=== PATIENT | male | born 1990 | race Caucasian/White ===

== ENCOUNTER 2022-03-02 20:12 | Emergency (ER) | payer MEDICAID, SELFPAY ==
[2022-03-02 20:35] VITALS: BP 119/74; BP 126/84; PULSE 54; PULSE 60; RESP 20; TEMP 36.7; O2SAT 100; O2SAT 97; BMI 19.6
--- NOTE | 2022-03-02 20:45 | PC.NURSE ---
Pt. is under arrest, [place] [employer] at bedside. Pt. is calm and cooperative, AOx4
--- NOTE | 2022-03-02 21:33 | ED.OVERDOSE ---
HPI - Overdose General Chief Complaint: Overdose Stated Complaint: Narc Ingestion Time Seen by Provider: 03/02/22 21:33 History of Present Illness HPI Narrative: 31-year-old male presented today after being in police custody Coke a bag of heroin and a bag of cocaine. Incident happened approximately 2 hours prior patient took it for recreational reasons. Patient has no complaint at this time. Review of Systems Review of Systems: No fever no chills no chest pain or shortness of breath no systemic complaints Yes all other systems are reviewed and are negative [facility] Past Medical History Attestation statement: The following information was validated with the patient. Social History Social History Advance Directives: No Advance Directives Information Provided: No Physical Exam Vital Signs: Vital Signs: Last Vital Signs Temp 98.0 F 03/02/22 20:35 Pulse 54 03/02/22 20:35 Resp 20 03/02/22 20:35 BP 119/74 03/02/22 20:35 Pulse Ox 100 03/02/22 20:35 O2 Del Method 03/02/22 20:35 BMI result Body Mass Index 19.6 Appearance: Alert. Oriented X3. No acute distress. Eyes: Pupils equal, round and reactive to light. ENT: Pharynx normal. Neck: Normal inspection. Neck supple. No lymph nodes noted. No crepitus CVS: Normal heart rate and rhythm. Pulses normal. Normal S1 and S2 Respiratory: No respiratory distress. Breath sounds normal. No Wheezing. No rales Abdomen: Soft and nontender. No rigidity. No distention. good BS x4 Skin: Skin warm and dry. Normal skin color. Normal skin turgor. Extremities: No lower extremity edema. Neurovascular intact to all extremities. No Lacerations. No Rash Neuro: Oriented X 3. No motor deficit. No sensory deficit. Moving all extermities. No slurred speech MDM - Overdose MDM Narrative Medical decision making narrative: Well-appearing no acute distress. Did not receive Narcan monitor in the emergency department for an hour will discharge patient home. In stable condition. Discharge Plan Discharge Clinical Impression: Drug overdose, Poisoning by opiate or related narcotic, Cocaine intoxication Patient Disposition: Home, Self-Care Instructions: Adult Overdose (ED), Cocaine Abuse (ED), Narcotic Use Disorder (ED) Referrals: [facility] [Provider Group]
[2022-03-02 22:03] VITALS: BP 106/71; PULSE 59; O2SAT 100
== END 2022-03-02 22:21 | disposition home or self-care (01) ==
PROVIDERS: Emergency Provider Emergency Medicine Emergency Medical Services
DX: T40.1X1A Poisoning by heroin, accidental (unintentional), initial encounter (principal); Y92.9 Unspecified place or not applicable; F14.129 Cocaine abuse with intoxication, unspecified; Z71.51 Drug abuse counseling and surveillance of drug abuser; Z79.899 Other long term (current) drug therapy
CPT/HCPCS: 99282; 99284

== ENCOUNTER 2024-06-02 01:43 | Inpatient (IN) | payer MEDICAID, SELFPAY ==
[2024-06-02] VITALS (10 sets, daily range): BP systolic 100–130; BP diastolic 55–80; PULSE 47–112; RESP 12–20; TEMP 36.4–37.5; O2SAT 96–98; BMI 19.1; BMI 19.7
--- NOTE | 2024-06-02 | ECG_ITS ---
Test Reason : OD Blood Pressure : / mmHG Vent. Rate : 056 BPM Atrial Rate : 056 BPM P-R Int : 156 ms QRS Dur : 092 ms QT Int : 604 ms P-R-T Axes : 008 075 084 degrees QTc Int : 582 ms Sinus bradycardia Nonspecific ST and T wave abnormality Prolonged QT Abnormal ECG When compared with ECG of 02-JUN-2024 01:53, QT has lengthened Referred By: Generic ED Physician Electronically Signed By:CLIFF BAHT
--- NOTE | 2024-06-02 01:16 | ED_ITS ---
HPI - Overdose General Chief Complaint: Psychiatric Symptoms Stated Complaint: SI, OD, section 12, unhoused Time Seen by Provider: 06/02/24 01:13 EST Source: patient Mode of arrival: EMS Limitations: no limitations History of Present Illness ED Provider: inocencia GALEANO Narrative: Patient's history of depression cocaine abuse overdose on tra[place] took about 18-20 tablets of 100 mg of trazodone 40 minutes prior to arrival in his suicide attempt girlfriend called the 911 patient was alert oriented at this time now on arrival patient feeling tired and sleepy but arousable patient also used cocaine Related Data Allergies Allergy/AdvReac Type Severity Reaction Status Date / Time sulfamethoxazole AdvReac Hives Verified 06/02/24 01:51 EDT [From Bactrim] trimethoprim [From Bactrim] AdvReac Hives Verified 06/02/24 01:51 EDT Review of Systems 2 Review of Systems: Yes all other systems are reviewed and are negative [facility] Social History Social History Alcohol intake: current Alcohol intake frequency: a few times a month Smoked in Last 30 Days: Yes Use of substances other than those prescribed or required for medical reasons: Yes Substance Use Type: Crack/Cocaine and Marijuana Substance Use Frequency: Daily Last Used Substance: Hours (ago) Advance Directives: No Advance Directives Information Provided: No Physical Exam 2 Vital Signs: Vital Signs: Last Vital Signs Temp 97.8 F 06/02/24 05:58 Pulse 60 06/02/24 05:58 Resp 12 06/02/24 05:58 BP 110/57 L 06/02/24 05:58 Pulse Ox 96 06/02/24 05:58 O2 Del Method Room Air 06/02/24 05:58 BMI result Body Mass Index 19.1 Appearance: Alert. Oriented X3. No acute distress. Lethargic easily arousable Eyes: PERRLA, No Nystagmus ENT: Pharynx normal. Oral Mucosa moist Neck: Normal inspection. Neck supple. CVS: Normal heart rate and rhythm. Pulses normal. Respiratory: No respiratory distress. Equal air entry bilateral, no wheezing/rales/rhonchi Abdomen: Soft and nontender. Bowel sounds are present, no mass palpable, no CVA tenderness Skin: Skin warm and dry. Normal skin color. Normal skin turgor. Extremities: No lower extremity edema. No calf tenderness no IVDA loving Neuro: Oriented X 3. No motor deficit. No sensory deficit.No cerebellar signs , cranial nerves II-XII intact Medications Administered Generic Name Dose Route Start Last Admin Trade Name Nino PRN Reason Stop Dose Admin Lactated Ringer's 1,000 mls @ 150 mls/hr 06/02/24 05:45 06/02/24 06:08 Lr IVCONT 150 mls/hr .Q6H40M CAITY Administration Discontinued Medications Generic Name Dose Route Start Last Admin Trade Name Frecandi PRN Reason Stop Dose Admin Charcoal 50 gm 06/02/24 01:16 EST 06/02/24 01:22 EST Activated Charcoal 50 Gm/240 Ml Oral.Susp PO 06/02/24 01:17 EST 50 gm ONCE ONE Administration Magnesium Sulfate 2 gm in 50 mls @ 150 mls/hr 06/02/24 03:30 06/02/24 04:37 Magnesium Sulfate/H2o IV 06/02/24 03:49 Infused ONCE ONE Infusion Potassium Chloride 10 meq in 100 mls @ 100 mls/hr 06/02/24 03:30 06/02/24 05:35 Potassium Chloride/H20 IV 06/02/24 04:29 Infused ONCE ONE Infusion Medical Decision Making Medical Decision Making [facility] Narrative: Patient with depression overdosed on trazodone was given charcoal on arrival initial QTC interval was 366 milliseconds increased to 582 milliseconds in the last EKG QT interval decreased to 517 case discussed with poison control will lab for observation patient received IV magnesium and potassium to keep the level more than 4.0 Admission/Observation Consideration of admission/observation: Escalation of care including admission/observation considered Consult Healthcare Provider Management of the patient was discussed with: Hospitalist Lab Data [facility] Lab Attestation statement: I reviewed the patient's lab results. 06/02/24 01:24 EST 06/02/24 05:54 Labs: Lab Results 06/02/24 Range/Units 01:24 EST WBC 5.1 (4.8-10.8) X10*3/uL RBC 3.70 L (4.60-5.80) X10*6/uL Hgb 11.1 L (14.0-18.0) g/dl Hct 33.1 L (42.0-52.0) % MCV 89.5 (80.0-98.0) fL MCH 30.0 (27.0-33.0) pg MCHC 33.5 (31.0-36.0) g/dl RDW 12.6 (11.0-16.0) % Plt Count 195 (160-400) X10*3/uL MPV 8.8 L (9.4-12.4) fL Immature Gran % (Auto) 0.2 (0.0-0.4) % Neut % (Auto) 62.9 (45-73) % Lymph % (Auto) 22.9 (20-40) % [place] % (Auto) 11.4 H (2-11) % Eos % (Auto) 2.0 (0-4) % Baso % (Auto) 0.6 (0-2) % Lymph # (Auto) 1.2 (1.2-4.9) X10*3/uL [place] # (Auto) 0.6 (0.1-1.2) X10*3/uL Eos # (Auto) 0.1 (0.0-0.4) X10*3/uL Baso # (Auto) 0.0 (0.0-0.2) X10*3/uL Abs Immat Gran (auto) 0.01 (0.00-0.03) X10*3/uL Absolute Neuts (auto) 3.2 (2.0-8.3) x10*3/uL Absolute Nucleated RBC 0.000 (0.0-0.012) X10*3/uL Nucleated RBC % (auto) 0.0 (0.0-0.2) /100WBC Sodium 140 (135-145) mmol/L Potassium 3.6 (3.3-5.1) mmol/L Chloride 105 (96-108) mmol/L Carbon Dioxide 25 (22-29) mmol/L Anion Gap 14 (12-20) BUN 20 H (9-16) mg/dL Creatinine 0.73 (0.5-1.4) mg/dL Estim Creat Clear Calc 131.0 Estimated GFR > 60 Random Glucose 95 (60-115) mg/dL Calcium 9.4 (8.4-10.2) mg/dL Magnesium 2.1 (1.6-2.6) mg/dL Total Bilirubin 0.3 (0.0-1.0) mg/dL AST 34 (5-37) U/L ALT 36 (0-40) U/L Alkaline Phosphatase 75 (39-117) U/L Total Protein 7.2 (6.5-8.0) g/dL Albumin 3.9 (3.5-5.0) g/dL Salicylates < 5.0 L (15-30) mg/dL Acetaminophen < 3 (<30) mcg/mL Ethyl Alcohol < 10 mg/dL Independent Interpretation I performed an independent interpretation of an: EKG Interpretation: Normal sinus rhythm heart rate 61 beats per minute normal intervals normal axis QTC interval [address] elevation Discharge Plan Discharge Clinical Impression: Overdose of trazodone, Suicide attempt, Cocaine use disorder, Prolonged QT interval Patient Disposition: Admitted As Inpatient
--- NOTE | 2024-06-02 01:17 | PC.NURSE ---
per poison control, admin 50mg activated charcoal
[2024-06-02] MEDS: Activated charcoaL 50 GM/240 ML ORAL.SUSP PO (01:22)
[2024-06-02 01:28] LABS: Basophils Percent Auto 0.6 % (0-2); Eosinophils Absolute Auto 0.1 X10*3/uL (0.0-0.4); Hematocrit 33.1 % (42.0-52.0); Hemoglobin 11.1 g/dl (14.0-18.0); Imm Gran Abs Auto 0.01 X10*3/uL (0.00-0.03); Imm Gran Pct Auto 0.2 % (0.0-0.4); Lymphocytes Absolute Auto 1.2 X10*3/uL (1.2-4.9); Lymphocytes Percent Auto 22.9 % (20-40); MANUAL DIFF FLAG NO; Mean Corpuscular HGB Conc 33.5 g/dl (31.0-36.0); Mean Corpuscular Volume 89.5 fL (80.0-98.0); Mean Platelet Volume 8.8 fL (9.4-12.4); Monocytes Absolute Auto 0.6 X10*3/uL (0.1-1.2); Monocytes Percent Auto 11.4 % (2-11); Neutrophils Absolute Auto 3.2 x10*3/uL (2.0-8.3); Neutrophils Percent Auto 62.9 % (45-73); Platelet Count 195 X10*3/uL (160-400); Red Cell Distribution Width 12.6 % (11.0-16.0); White Blood Count 5.1 X10*3/uL (4.8-10.8)
--- NOTE | 2024-06-02 01:30 | PC.NURSE ---
per poison control: EKG q4hr, if bradycardia q2, looking for QT prolongation. labs q4hr. monitor minimum 8 hrs, longer if lethargic or derrick. hypotension possible. aware
[2024-06-02 01:56] LABS: Alanine Aminotransferase 36 U/L (0-40); Albumin Level 3.9 g/dL (3.5-5.0); Alkaline Phosphatase 75 U/L (39-117); Anion Gap 14 (12-20); Aspartate Amino Transferase 34 U/L (5-37); Bilirubin Total 0.3 mg/dL (0.0-1.0); Blood Urea Nitrogen 20 mg/dL (9-16); Calcium 9.4 mg/dL (8.4-10.2); Carbon Dioxide 25 mmol/L (22-29); Chloride 105 mmol/L (96-108); Estimated Glomerular Filt Rate > 60; Ethanol < 10 mg/dL; Glucose Random 95 mg/dL (60-115); Potassium 3.6 mmol/L (3.3-5.1); Sodium 140 mmol/L (135-145); Total Protein 7.2 g/dL (6.5-8.0)
[2024-06-02 02:10] LABS: Acetaminophen LAB < 3 mcg/mL (<30); Salicylate < 5.0 mg/dL (15-30)
[2024-06-02 02:56] LABS: Magnesium 2.1 mg/dL (1.6-2.6)
--- NOTE | 2024-06-02 03:29 | PC.NURSE ---
poison control requesting pt be given potassium, would like it closer to 4, currently 3.6
[2024-06-02] MEDS: Magnesium Sulfate/H2O 2 GM/50 ML PIGGYBACK IV (04:13)
--- NOTE | 2024-06-02 04:13 | PC.NURSE ---
pt drowsy but responds to verbal stimuli. 20g IV R forearm
[2024-06-02] MEDS: Potassium Chloride/H20 10 MEQ/100 ML PIGGYBACK 100 MEQ IV (04:37)
--- NOTE | 2024-06-02 04:52 | PC.NURSE ---
belongings on shelf 1 in closet
--- NOTE | 2024-06-02 05:31 | PC.NURSE ---
pt drank about 1/2 of activated charcoal, will try to encourage the rest
--- NOTE | 2024-06-02 05:38 | P.HPHOSP_ITS ---
History of Present Illness Date of Service: 06/02/24 Attending physician on admission: Burt Treviño Chief Complaint: Trazodone overdose Xavier Aden is a 33 years old man who was brought to the emergency department via EMS [place]. The patient took about 20 pills ceftriaxone of 100 mg to attempt killing himself. He has been in the emergency department before for cocaine intoxication/overdose. Patient denied any chest pain, palpitations, shortness on breath, nausea, abdominal pain, vomiting, fever, chills or diarrhea. He denied recent alcohol consumption. He has been using cocaine intravenously. In the ED, he was found to have stable vital signs. Blood workup including CBC and CMP are basically unremarkable except for mild anemia of 11.1. Salicylates level is <0.5, acetaminophen level< 3 and ETOH level < 10. Serial ECGs: QTc 366 --> 582 --> 517 ms. Poison control contacted by emergency department, recommending treatment with charcoal, magnesium and potassium IV in addition to serial ECGs. Review of Systems 2 Review of Systems: Yes Unobtainable due to mental status PMFSH Social History Alcohol intake: current Alcohol intake frequency: a few times a month Smoked in Last 30 Days: Yes Use of substances other than those prescribed or required for medical reasons: Yes Substance Use Type: Crack/Cocaine and Marijuana Substance Use Frequency: Daily Last Used Substance: Hours (ago) Advance Directives: No Advance Directives Information Provided: No Meds Allergies Allergy/AdvReac Type Severity Reaction Status Date / Time sulfamethoxazole AdvReac Hives Verified 06/02/24 01:51 EDT [From Bactrim] trimethoprim [From Bactrim] AdvReac Hives Verified 06/02/24 01:51 EDT Active Medications: Current Medications Enoxaparin Sodium (Enoxaparin Sodium 40 Mg/0.4 Ml Syringe) 40 mg SUBCUT Q24H CAITY Lactated Ringer's (Lr) 1,000 mls @ 10 mls/hr IVCONT .Q24H CAITY Sodium Chloride (0.9 % Sodium Chloride Flush 3 Ml Syringe) 3 ml IVFLUSH QSHIFT CAITY Physical Exam 2 Vital Signs and Narrative: Vital Signs: Last Vital Signs Temp 97.6 F 06/02/24 01:49 ED T Pulse 60 06/02/24 04:14 Resp 12 06/02/24 04:14 BP 108/63 06/02/24 04:14 Pulse Ox 98 06/02/24 04:14 O2 Del Method Room Air 06/02/24 04:14 BMI result Body Mass Index 19.1 Constitutional - Lethargic. Easy to arouse. No distress. HEENT - PERRLA, EOMI. Normal sclerae. Heart - S1S2, RRR, No murmurs Lungs - Normal lung expansion, Normal respiratory effort, No respiratory distress, CTA bilaterally Abdomen - NT / ND; +BS; No rebound or guarding Extremities - no calf tenderness bilaterally, no swelling Musculoskeletal - Normal inspection, normal ROM Skin - Warm/Dry Neurological - Alert & oriented x3. No focal weakness grossly noted. Normal speech. Psychological - Depressed affect Results Labs 06/02/24 01:24 EST 06/02/24 01:24 EST Labs: Laboratory Results - last 24 hr 06/02/24 01:24 EST MCV 89.5 MCH 30.0 MCHC 33.5 RDW 12.6 Plt Count 195 MPV 8.8 L Immature Gran % (Auto) 0.2 Neut % (Auto) 62.9 Lymph % (Auto) 22.9 [place] % (Auto) 11.4 H Eos % (Auto) 2.0 Baso % (Auto) 0.6 Lymph # (Auto) 1.2 [place] # (Auto) 0.6 Eos # (Auto) 0.1 Baso # (Auto) 0.0 Abs Immat Gran (auto) 0.01 Absolute Neuts (auto) 3.2 Absolute Nucleated RBC 0.000 Nucleated RBC % (auto) 0.0 Anion Gap 14 Estim Creat Clear Calc 131.0 Estimated GFR > 60 Random Glucose 95 Calcium 9.4 Magnesium 2.1 Total Bilirubin 0.3 AST 34 ALT 36 Alkaline Phosphatase 75 Total Protein 7.2 Albumin 3.9 Salicylates < 5.0 L Acetaminophen < 3 Ethyl Alcohol < 10 Assessment and Plan (1) Overdose of trazodone: Status: Acute (2) Suicide attempt: Status: Acute (3) Cocaine use disorder: Status: Acute Plan Xavier Aden is a 33 years old man * Intentional trazodone overdose --> prolonged QT, improving. Admit to hospitalist service. NPO. Supportive care. Aspiration precautions. Telemetry. Magnesium, KCl IV and charcoal given in ED. ECGs every 2 hours. IV fluids. Ativan IV p.r.n. seizures. Urine drug screen pending. * Suicide attempt. Suicide precautions. Section 12. Observation one-to-one. Psychiatric consult. * Cocaine use disorder. Addiction medicine consult. DVT prophylaxis: Lovenox Code status: Full Patient will need hospitalization for at least 2 midnight for trazodone overdose treatment with continuous cardiac monitoring, serial ECGs and evaluation by psychiatric service. Quality Stroke Does the patient have a stroke diagnosis?: No VTE Prior VTE?: No VTE Risk Level:: Medical - moderate - high VTE Device Contraindication: Treatment Not Indicated VTE Drug Contraindication: N/A - Med Ordered
[2024-06-02] MEDS: Lactated Ringers 1,000 ML 150 ML IVCONT ×3 (06:08→19:28)
[2024-06-02 06:22] LABS: Anion Gap 13 (12-20); Blood Urea Nitrogen 17 mg/dL (9-16); Calcium 9.1 mg/dL (8.4-10.2); Carbon Dioxide 26 mmol/L (22-29); Chloride 103 mmol/L (96-108); Estimated Glomerular Filt Rate > 60; Glucose Random 112 mg/dL (60-115); Magnesium 2.8 mg/dL (1.6-2.6); Potassium 4.2 mmol/L (3.3-5.1); Sodium 138 mmol/L (135-145)
--- NOTE | 2024-06-02 06:36 | PC.NURSE ---
no new recommendations from poison control at this time. will follow up with day shift
[2024-06-02 06:44] LABS: Venous Blood Gas Refer to POC result
[2024-06-02 06:47] LABS: VBG HCO3 30 mmol/L (22-26); VBG pCO2 45 mmHg; VBG pH 7.42 (7.32-7.43); VBG pO2 78 mmHg
--- NOTE | 2024-06-02 07:00 | ECG_ITS ---
Test Reason : od Blood Pressure : / mmHG Vent. Rate : 052 BPM Atrial Rate : 052 BPM P-R Int : 164 ms QRS Dur : 092 ms QT Int : 426 ms P-R-T Axes : 076 075 088 degrees QTc Int : [address] & T wave abnormality, consider inferior ischemia Abnormal ECG When compared with ECG of 02-JUN-2024 05:06, QT has shortened (difficultt to accurately measure as the T wave is gradually flattenning, but V4 has U wave, overall, probably normal QT) Referred By: Burt Treviño Electronically Signed By:CLIFF BHAT
--- NOTE | 2024-06-02 09:00 | ECG_ITS ---
Test Reason : overdose Blood Pressure : / mmHG Vent. Rate : 061 BPM Atrial Rate : 061 BPM P-R Int : 164 ms QRS Dur : 098 ms QT Int : 364 ms P-R-T Axes : 072 066 068 degrees QTc Int : 366 ms Normal sinus rhythm Incomplete right bundle branch block Nonspecific ST and T wave abnormality Abnormal ECG No previous ECGs available Referred By: Burt Treviño Electronically Signed By:CLIFF BHAT
--- NOTE | 2024-06-02 10:54 | HE.PHANOTE ---
re methadone verification last dose 170 mg given 06/01/24 @[facility]
--- NOTE | 2024-06-02 11:00 | ECG_ITS ---
Test Reason : overdose Blood Pressure : / mmHG Vent. Rate : 062 BPM Atrial Rate : 062 BPM P-R Int : 162 ms QRS Dur : 092 ms QT Int : 400 ms P-R-T Axes : 075 077 091 degrees QTc Int : 407 ms Normal sinus rhythm Normal ECG When compared with ECG of 02-JUN-2024 02:31, No significant changes seen Referred By: Burt Treviño Electronically Signed By:CLIFF BHAT
--- NOTE | 2024-06-02 11:07 | PHA.MEDREC ---
Addendum entered by Mirtha Santos RPh 06/02/24 11:21: [facility] ED REVIEWED Original Note: Pharmacy Consult ? Medication Reconciliation Pharmacy has completed the medication reconciliation. Spoke to pt to confirm meds.
--- NOTE | 2024-06-02 11:41 | P.CNPS_ITS ---
History of Present Illness Date of Service: 06/02/24 Chief Complaint: Trazodone Overdose, Prolonged QT Reason for Consult: Dep med management recs Sources of Information: patient interviewed and chart reviewed HPI Narrative: As per H and P note 06/02/24: 33 years old man who was brought to the emergency department via EMS [place] The patient took about 20 pills ceftriaxone of 100 mg to attempt killing himself. He has been in the emergency department before for cocaine intoxication/overdose. Patient denied any chest pain, palpitations, shortness on breath, nausea, abdominal pain, vomiting, fever, chills or diarrhea. He denied recent alcohol consumption. He has been using cocaine intravenously. In the ED, he was found to have stable vital signs. Blood workup including CBC and CMP are basically unremarkable except for mild anemia of 11.1. Salicylates level is <0.5, acetaminophen level< 3 and ETOH level < 10. Serial ECGs: QTc 366 --> 582 --> 517 ms. Poison control contacted by emergency department, recommending treatment with charcoal, magnesium and potassium IV in addition to serial ECGs Today: Pt pleasant with interview. Alert, oriented. Eating lunch. Reports taking too many trazodone because 2-3 normally help with sleep but didn't, so kept taking more. Reports asking to call EMS. Adamant he is not suicidal and it was accidental in nature. Cocaine IV use daily. Does not want rehab. Has 12-18 months sobriety during incarceration, but not more than a day outside of that. History of S35 approx 2 years ago I asked my to do that . Denies depression,. Endorses anxiety. Denies psychosis. No psych services or meds and no current interest in same. Gave contact details- Nicki Rodriguez [phone] (called and left Voicemail from cellphone/hospital line could not complete call). Past Psychiatric History: Denied Medical Evaluation Reviewed: Yes [facility] Social History: Lives with of 7 years: Nicki Rodriguez [phone]. No children. 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 Does not want rehab. Has 12-18 months sobriety during incarceration, but not more than a day outside of that. History of S35 approx 2 years ago I asked my to do that . Diagnostics Vital Signs (24Hr): Vital Signs - 24 hr 06/02/24 01:49 EDT 06/02/24 02:17 06/02/24 04:14 Temperature 97.6 F Pulse Rate 65 61 60 Respiratory Rate 16 16 12 Blood Pressure 105/63 108/64 108/63 Pulse Oximetry 97 98 98 Oxygen Delivery Method Room Air Room Air Room Air 06/02/24 05:58 06/02/24 08:09 06/02/24 10:11 Temperature 97.8 F 98.2 F 99.5 F Pulse Rate 60 54 55 Respiratory Rate 12 18 18 Blood Pressure 110/57 L 100/58 L 113/62 Pulse Oximetry 96 98 98 Oxygen Delivery Method Room Air Room Air Room Air BMI result Body Mass Index 19.7 Labs 06/02/24 01:24 EST 06/02/24 05:54 Labs: Laboratory Results - last 48 hr 06/02/24 06/02/24 06/02/24 01:24 EST 05:54 06:42 WBC 5.1 RBC 3.70 L Hgb 11.1 L Hct 33.1 L MCV 89.5 MCH 30.0 MCHC 33.5 RDW 12.6 Plt Count 195 MPV 8.8 L Immature Gran % (Auto) 0.2 Neut % (Auto) 62.9 Lymph % (Auto) 22.9 [place] % (Auto) 11.4 H Eos % (Auto) 2.0 Baso % (Auto) 0.6 Lymph # (Auto) 1.2 [place] # (Auto) 0.6 Eos # (Auto) 0.1 Baso # (Auto) 0.0 Abs Immat Gran (auto) 0.01 Absolute Neuts (auto) 3.2 Absolute Nucleated RBC 0.000 Nucleated RBC % (auto) 0.0 VBG pH 7.42 VBG pCO2 45 VBG pO2 78 VBG HCO3 30 H VBG O2 Saturation 99.0 VBG Base Excess 5.0 Sodium 140 138 Potassium 3.6 4.2 Chloride 105 103 Carbon Dioxide 25 26 Anion Gap 14 13 BUN 20 H 17 H Creatinine 0.73 0.79 Estim Creat Clear Calc 131.0 121.0 Estimated GFR > 60 > 60 Random Glucose 95 112 Calcium 9.4 9.1 Magnesium 2.1 2.8 H Total Bilirubin 0.3 AST 34 ALT 36 Alkaline Phosphatase 75 Total Protein 7.2 Albumin 3.9 Salicylates < 5.0 L Acetaminophen < 3 Ethyl Alcohol < 10 Mental Status Exam Mental Status Exam Patient Appearance: Appropriate Patient Orientation: Person, Place, Time and Situation Level of Consciousness: Awake and Appropriate Patient Behavior: Appropriate Mood Description: Calm Affect Description: Calm Patient Cognition Impaired: No Ability to Follow Directions: Good Speech Pattern: Clear and Coherent Memory Description: Intact Hallucinations: None Delusions: Not Present Thought Process: Intact Thought Content: positive for Intact Depressive Symptoms: Increased Anxiety Judgement: Fair Medications Medications Current Medications Bictegravir/Emtricitabine/Tenofovir (Bictegrav/Emtricit/Tenofov Ala Tablet) 1 tab PO BEDTIME [facility] Enoxaparin Sodium (Enoxaparin Sodium 40 Mg/0.4 Ml Syringe) 40 mg SUBCUT Q24H [facility] Last Admin: 06/02/24 09:01 Dose: Not Given Lactated Ringer's (Lr) 1,000 mls @ 150 mls/hr IVCONT .Q6H40M [facility] Last Admin: 06/02/24 06:08 Dose: 150 mls/hr Lorazepam (Lorazepam 2 Mg/Ml Vial) 2 mg IVPUSH ONCE PRN PRN Reason: seizures Methadone HCl (Methadone Hcl 20 Mg/2 Ml Oral.Conc) 100 mg PO ONCE ONE Stop: 06/02/24 11:40 Nicotine (Nicotine 14 Mg Patch.Td24) 14 mg TRANSDERMA DAILY [facility] Sodium Chloride (0.9 % Sodium Chloride Flush 3 Ml Syringe) 3 ml IVFLUSH QSHIFT [facility] Last Admin: 06/02/24 08:09 Dose: Not Given Allergies Allergies Allergy/AdvReac Type Severity Reaction Status Date / Time sulfamethoxazole AdvReac Hives Verified 06/02/24 01:51 EDT [From Bactrim] trimethoprim [From Bactrim] AdvReac Hives Verified 06/02/24 01:51 EDT Assessment & Plan Assessment & Plan (1) Cocaine use disorder: Status: Acute Code(s): F14.10 - Cocaine abuse, uncomplicated (2) Overdose of trazodone: Status: Acute Code(s): T43.211A - Poisoning by selective serotonin and norepinephrine reuptake inhibitors, accidental (unintentional), initial encounter Plan Cocaine use disorder, noty currently interested in reab services. Anxiety- declined referrals or meds Trazodone overdose- appears accidental and will get collateral from ref same to determine level of risk and grounds or not for involuntary inpatient psychiatry level of care. Pt gave contact details- Nicki Rodriguez [phone] (called and left Voicemail from cellphone/hospital line could not complete call). Total time managing care of this patient today ____ minutes. Patient educated on: therapeutic strategies Informed Consent: understands
[2024-06-02] MEDS: Nicotine 14 MG PATCH.TD24 TRANSDERMA (12:42)
[2024-06-02] MEDS: methADONE HCl 20 MG/2 ML ORAL.CONC 50 MG PO (12:43)
--- NOTE | 2024-06-02 13:00 | ECG_ITS ---
Test Reason : QT CHECK Blood Pressure : / mmHG Vent. Rate : 051 BPM Atrial Rate : 051 BPM P-R Int : 162 ms QRS Dur : 092 ms QT Int : 400 ms P-R-T Axes : 073 078 088 degrees QTc Int : 369 ms Sinus bradycardia Nonspecific T wave abnormality Borderline ECG No significant changes when compared with the previous EKG of same day Referred By: Burt Treviño Electronically Signed By:CLIFF BHAT
[2024-06-02] MEDS: 0.9 % Sodium Chloride Flush 3 ML SYRINGE IVFLUSH ×2 (15:04→19:30)
--- NOTE | 2024-06-02 15:43 | PM.EVENT ---
Event Note Date of Service: 06/02/24 Event Note: seen and examined this morning follow up for trazodone overdose on section 21 awake, alert, no specific complaints this morning Intentional trazodone overdose Qtc has been stable seen by psych - pt will likely need inpatient psych - see psych note for details on section 21 1:1 sitter will need care team evaluation when medically stable, likely in am can NOT leave AMA cocaine use addiction medicine consult pending OUD 50mg methadone given due to admission for trazodone and monitoring of qtc addiction medicine consult pending based on qtc can consider repeat 50 mg dosing this afternoon and then increase dose in am continue biktarrvy see full H&P for further management Time Spent With Patient Time: Total time managing care of this patient today ____ minutes.
--- NOTE | 2024-06-02 16:27 | MHC.CM.PN ---
CM ATTEMPTED TO MEET WITH PT WHO WAS SLEEPING CM TO RETURN
[2024-06-02 17:11] LABS: Amphetamine Screen Urine Not Detected (Not Detect); Barbiturates, Urine Not Detected (Not Detect); Benzodiazepines Screen Urine Not Detected (Not Detect); Buprenorphine Scr Not Detected (Not Detect); Cannabinoid Screen Urine Not Detected (Not Detect); Cocaine Screen Urine POSITIVE (Not Detect); Fentanyl, urine POSITIVE (Not Detect); Methadone Screen, Urine Positive (Not Detect); Opiate Screen Urine POSITIVE (Not Detect); Oxycodone Screen Urine Not Detected (Not Detect); Phencyclidine Screen Urine Not Detected (Not Detect)
[2024-06-02] MEDS: Bictegrav/Emtricit/Tenofov Ala TABLET 1 TAB PO (20:14)
--- NOTE | 2024-06-02 20:55 | MHC.CARE ---
Pt assessed by the CARE Team and is appropriate for inpatient level of care. Dispo discussed with Hospitalist and Pt. Pt on a section 12A for safety.
--- NOTE | 2024-06-02 22:46 | PC.NURSE ---
Call from security. Pt's girlfriend wanted to bring pt clothes. Security was calling floor to see if girlfriend could come up. While they were speaking to charge weigher, girlfriend went into bathroom where she remained for some time. D/t time of night security offered to bring clothes up to pt once girlfriend exited bathroom. Girlfriend quickly left hospital w/clothes. Pt is admitted for SI from pills, no visitors allowed at this time. Will pass on to on coming shift.
[2024-06-03] MEDS: Lactated Ringers 1,000 ML 150 ML IVCONT ×2 (02:23→09:25)
[2024-06-03 03:32] VITALS: BP 117/82; PULSE 53; RESP 18; TEMP 36.8; O2SAT 96
[2024-06-03 03:34] VITALS: BP 117/82; PULSE 53; RESP 18; TEMP 36.8; O2SAT 96
[2024-06-03 07:17] LABS: MANUAL DIFF FLAG NO
[2024-06-03 07:20] LABS: Basophils Percent Auto 0.5 % (0-2); Eosinophils Absolute Auto 0.1 X10*3/uL (0.0-0.4); Eosinophils Percent Auto 3.3 % (0-4); Hematocrit 34.8 % (42.0-52.0); Hemoglobin 11.6 g/dl (14.0-18.0); Imm Gran Abs Auto 0.01 X10*3/uL (0.00-0.03); Imm Gran Pct Auto 0.3 % (0.0-0.4); Lymphocytes Absolute Auto 1.5 X10*3/uL (1.2-4.9); Lymphocytes Percent Auto 39.6 % (20-40); Mean Corpuscular HGB Conc 33.3 g/dl (31.0-36.0); Mean Corpuscular Hemoglobin 30.6 pg (27.0-33.0); Mean Corpuscular Volume 91.8 fL (80.0-98.0); Mean Platelet Volume 9.2 fL (9.4-12.4); Monocytes Absolute Auto 0.4 X10*3/uL (0.1-1.2); Monocytes Percent Auto 11.1 % (2-11); Neutrophils Absolute Auto 1.7 x10*3/uL (2.0-8.3); Neutrophils Percent Auto 45.2 % (45-73); Platelet Count 182 X10*3/uL (160-400); Red Blood Count 3.79 X10*6/uL (4.60-5.80); Red Cell Distribution Width 12.8 % (11.0-16.0); White Blood Count 3.7 X10*3/uL (4.8-10.8)
[2024-06-03 07:45] LABS: Anion Gap 9 (12-20); Blood Urea Nitrogen 15 mg/dL (9-16); Carbon Dioxide 26 mmol/L (22-29); Chloride 107 mmol/L (96-108); Creatinine Clr Calc Pharmacy 123.2; Estimated Glomerular Filt Rate > 60; Glucose Random 90 mg/dL (60-115); Potassium 4.3 mmol/L (3.3-5.1); Sodium 138 mmol/L (135-145)
[2024-06-03 08:00] VITALS: BP 106/64; PULSE 48; RESP 16; TEMP 37; O2SAT 100
[2024-06-03] MEDS: Nicotine 14 MG PATCH.TD24 TRANSDERMA (08:26)
[2024-06-03] MEDS: 0.9 % Sodium Chloride Flush 3 ML SYRINGE IVFLUSH (08:29)
--- NOTE | 2024-06-03 08:57 | MHC.CM.PN ---
CM met with Patient at bedside. Patient's face sheet indicates that he is homeless; Patient states that he lives in a house with his , but he refused to provide the home address. Patient may benefit from a Care Team consult r/t SI and Overdose, to assist with disposition. CM has initiated and will follow for dc planning. Patient has no PCP and declined a HCP.Patient obtains his Methadone from [facility] in [place].
[2024-06-03 10:55] VITALS: BP 120/56; PULSE 52; RESP 16; TEMP 36.6; O2SAT 100
--- NOTE | 2024-06-03 11:17 | P.DS_ITS ---
DS: Providers Provider Date of Service: 06/03/24 Date of admission: 06/02/24 05:34 Primary care physician: Unknown Physician Consults: 06/02/24 05:36 Consult to Psychiatry Routine Consulting Provider: Psych Covering Reason for consultation: trazodone overdose, suicide attempt Has provider been notified: No 06/02/24 05:54 Addiction Medicine Routine Consulting Provider: Addiction Covering Reason for consultation: Cocaine use disorder Has provider been notified: No 06/02/24 15:28 Consult to Care Team Routine Comment: Reason for consultation: See Psychiatry Consult (incl ADDENDUM). DS: Diagnosis Discharge Diagnosis (1) Cocaine use disorder: Status: Acute (2) Overdose of trazodone: Status: Acute DS: Summary Hospital Course Hospital Course: Xavier Aden is a 33 years old man who was brought to the emergency department via [place]. The patient took about 20 pills ceftriaxone of 100 mg to attempt killing himself. He has been in the emergency department before for cocaine intoxication/overdose. Patient denied any chest pain, palpitations, shortness on breath, nausea, abdominal pain, vomiting, fever, chills or diarrhea. He denied recent alcohol consumption. He has been using cocaine intravenously. In the ED, he was found to have stable vital signs. Blood workup including CBC and CMP are basically unremarkable except for mild anemia of 11.1. Salicylates level is <0.5, acetaminophen level< 3 and ETOH level < 10. Serial ECGs: QTc 366 --> 582 --> 517 ms. Poison control contacted by emergency department, recommending treatment with charcoal, magnesium and potassium IV in addition to serial ECGs. 33-year-old man treated for intentional trazodone overdose. Initially he had elevated QTC of 582 therefore admitted to medical floor for serial EKGs. Trazodone and Seroquel were stopped during admission. His methadone was also placed on hold due to this. He was placed on a section 21. He was seen and evaluated by care team who recommended inpatient psychiatric admission. Patient has had a one-to-one sitter and at this time remains hemodynamically stable with QTC down to 366. Discussed case with Addiction Medicine and plan is to resume patient's home dose of methadone. Continue Biktarvy. Time Attestation Discharge Coordination Time (in mins): 32 Quality: Safe Use of Opioids Does Pt have an Active Cancer Diagnosis on the Problem List?: No Quality: Stroke Does the patient have a stroke diagnosis?: No Physical Exam Vital Signs: Vital Signs: Last Vital Signs Temp 98 F 06/03/24 10:55 Pulse 52 06/03/24 10:55 Resp 16 06/03/24 10:55 BP 120/56 L 06/03/24 10:55 Pulse Ox 100 06/03/24 10:55 O2 Del Method Room Air 06/03/24 10:55 BMI result Body Mass Index 19.7 Appearing in no acute distress head is normocephalic atraumatic eyes pupils are PERRLA sclera is anicteric mouth throat mucous membranes are intact and moist neck is supple no lymphadenopathy, no JVD noted lung sounds are clear to auscultation heart regular rate rhythm, clear S1, S2 positive bowel sounds, abdomen is soft, nontender neuro patient is alert x3, no focal deficits DS: Data Data Completed and Pending Labs on day of discharge: Laboratory Results - last 24 hr 06/02/24 06/03/24 16:46 06:57 WBC 3.7 L RBC 3.79 L Hgb 11.6 L Hct 34.8 L MCV 91.8 MCH 30.6 MCHC 33.3 RDW 12.8 Plt Count 182 MPV 9.2 L Immature Gran % (Auto) 0.3 Neut % (Auto) 45.2 Lymph % (Auto) 39.6 Rawlins % (Auto) 11.1 H Eos % (Auto) 3.3 Baso % (Auto) 0.5 Lymph # (Auto) 1.5 Rawlins # (Auto) 0.4 Eos # (Auto) 0.1 Baso # (Auto) 0.0 Abs Immat Gran (auto) 0.01 Absolute Neuts (auto) 1.7 L Absolute Nucleated RBC 0.000 Nucleated RBC % (auto) 0.0 Sodium 138 Potassium 4.3 Chloride 107 Carbon Dioxide 26 Anion Gap 9 L BUN 15 Creatinine 0.80 Estim Creat Clear Calc 123.2 Estimated GFR > 60 Random Glucose 90 Calcium 9.0 Magnesium 2.0 Urine Opiates Screen POSITIVE H Ur Buprenorphine Scrn Not Detected Ur Oxycodone Screen Not Detected Urine Methadone Screen Positive H Urine Fentanyl Screen POSITIVE H Ur Barbiturates Screen Not Detected Ur Phencyclidine Scrn Not Detected Ur Amphetamines Screen Not Detected U Benzodiazepines Scrn Not Detected Urine Cocaine Screen POSITIVE H U Marijuana (THC) Screen Not Detected Discharge Plan Discharge Anticipated Discharge Date/Time: 06/03/24 11:02 Patient Disposition: Xfer Psychiatric Hosp Discharge Diagnosis: Trazodone overdose QT prolongation Discharge Medications: New methadone [Methadose] 10 mg/mL concentrate 170 mg PO DAILY Qty: 30 0RF Rx Instructions: Partial Fill upon patient request. Continued hydroxyzine pamoate 50 mg capsule 50 mg PO TID PRN (Reason: Anxiety) Biktarvy 50-200-25 mg tablet 1 tab PO BEDTIME Discontinued trazodone 100 mg tablet 200 mg PO BEDTIME sertraline 50 mg tablet 50 mg PO BEDTIME methadone [Methadone Intensol] 10 mg/mL Concentrate 170 mg PO DAILY Discharge Orders: Discharge Order (Routine); Ordered 06/03/24 Ordered By: Zainab Crenshaw Diet: Advance to usual diet Activity on Discharge: As tolerated Stand Alone Forms: Patient Portal Discharge page Print Language: Croatian Care Plan Goals: Transfer to for psychiatric care Health Concerns: Trazodone overdose Prolonged QTC Plan of Treatment: Transfer to psychiatric floor for further Mental Health Care due to overdose of trazodone Methadone has been held due to prolonged QTC, now normal, discussed with [facility], can return to home dose of methadone Assessment: See discharge summary
[2024-06-03] MEDS: methADONE HCl 20 MG/2 ML ORAL.CONC 170 MG PO (11:41)
--- NOTE | 2024-06-03 11:44 | MHC.CM.PN ---
Patient will dc to [facility].
== END 2024-06-03 13:05 | DRG 817 ==
LOC: HO.ED 01:57 → HO.EDOVER 05:46 → HO.IMC 08:01
PROVIDERS: Admitting Provider Internal Medicine; Emergency Provider Internal Medicine; Visit Provider Nurse Practitioner Acute Care
DX: T43.212A Poisoning by selective serotonin and norepinephrine reuptake inhibitors, intentional self-harm, initial encounter (principal); F14.159 Cocaine abuse with cocaine-induced psychotic disorder, unspecified; F17.210 Nicotine dependence, cigarettes, uncomplicated; Z71.6 Tobacco abuse counseling; R94.31 Abnormal electrocardiogram [ECG] [EKG]; F41.9 Anxiety disorder, unspecified; Z79.899 Other long term (current) drug therapy
CPT/HCPCS: 36415; 80048; 80053; 80143; 80179; 80307; 82803; 83735; 85025; 93005; 99285; J3475; J3480; J7120; S9485

== ENCOUNTER → 2024-06-02 02:31 | Outpatient (BNV) | payer MEDICAID, SELFPAY | PROVIDERS: Admitting Provider Internal Medicine; Emergency Provider Internal Medicine; Visit Provider Internal Medicine | DX: T43.292A Poisoning by other antidepressants, intentional self-harm, initial encounter (principal); R00.1 Bradycardia, unspecified; I45.19 Other right bundle-branch block; R94.31 Abnormal electrocardiogram [ECG] [EKG]; Z51.81 Encounter for therapeutic drug level monitoring | CPT/HCPCS: 93010 ==

== ENCOUNTER → 2024-06-02 05:34 | Outpatient (BNV) | payer MEDICAID, SELFPAY | PROVIDERS: Admitting Provider Internal Medicine; Emergency Provider Internal Medicine; Visit Provider Internal Medicine | DX: F14.10 Cocaine abuse, uncomplicated (principal); T43.211A Poisoning by selective serotonin and norepinephrine reuptake inhibitors, accidental (unintentional), initial encounter | CPT/HCPCS: 99223; 99239; 99499 ==

== ENCOUNTER → 2024-06-02 05:34 | Outpatient (BNV) | payer OTHER, SELFPAY | PROVIDERS: Admitting Provider Internal Medicine; Emergency Provider Internal Medicine; Visit Provider Psychiatry & Neurology Psychiatry | DX: F14.10 Cocaine abuse, uncomplicated (principal); T43.211A Poisoning by selective serotonin and norepinephrine reuptake inhibitors, accidental (unintentional), initial encounter | CPT/HCPCS: 99232 ==

== ENCOUNTER 2024-06-03 13:09 | Inpatient (IN) | payer OTHER, SELFPAY ==
[2024-06-03 13:57] VITALS: BP 151/67; PULSE 49; RESP 20; TEMP 36.4; O2SAT 98
[2024-06-03 13:58] VITALS: BMI 19.8
[2024-06-03] MEDS: Nicotine 21 MG PATCH.TD24 TRANSDERMA (14:29)
[2024-06-03] MEDS: hydrOXYzine HCL 25 MG TABLET PO (14:30)
--- NOTE | 2024-06-03 15:45 | HE.PHANOTE ---
RE: METHADONE DOSING Patient is being moved from [facility] to . Last dose 170 mg was given on 06/03/24 @1141 on [facility]. Previous dose 170 mg was given on 06/01/24 @[facility] (per note from [facility] account).
--- NOTE | 2024-06-03 16:00 | PC.ADMIT ---
Joon) is a 33 year old white male admitted to at 1:30 pm 06/03 from the [facility] with diagnosis of SI/reported Trazodone?overdose 06/02. Per EMS patient reported taking 20 tablets of (100 mg tab) Trazodone. He was treated with IV potassium, magnesium, and activated charcoal and transferred to the medical unit for telemetry due to a prolonged QTC. U tox positive for methadone, fentanyl, and cocaine. Pt has a hx of HIV infection, Hep C, cocaine use disorder, OUD ( on 170 mg methadone daily), daily marijuana use, and smokes 1 pack cigarettes per day. He reports he rarely?drinks but when he does (once a month), it's usually 10 nips. He uses cocaine several times per day, and smokes marijuana at night to help him sleep. He was brought to , skin and safety check done with another RN and no significant findings. Ricardo does have some dry areas on face, cheeks, and forehead. Pt states all belongings are in [place]. He was cooperative with the admission process, signed a CV with Dr Melchor, and oriented to the unit. He denies previous psychiatric IPLOC. He reports recent incarceration but declined to comment on legal matters. Pt anxious during intake, making fair eye contact, and repeatedly asking how long do you think I will be here? Pt denies current SI/HI/AVH. He reports that I didn't take 100 Trazodone, I just said that, but won't ever do that again! Unable to rate depression and anxiety but was accepting of offered hydroxyzine. Med reconciliation?completed and Methadone dose previously verified. Ricardo is open to NRT, declines addictions consult, and declines Flu shot. Ordered on q15 min safety checks and will continue to monitor.?
[2024-06-03 20:00] VITALS: BP 119/70; PULSE 50; TEMP 36.4; O2SAT 98
[2024-06-03] MEDS: hydrOXYzine HCL 50 MG TABLET PO (21:38)
[2024-06-03] MEDS: traZODone HCL 100 MG TABLET 200 MG PO (21:38)
[2024-06-03] MEDS: Bictegrav/Emtricit/Tenofov Ala TABLET 1 TAB PO (21:38)
[2024-06-04] MEDS: methADONE HCl 20 MG/2 ML ORAL.CONC 170 MG PO (07:47)
[2024-06-04 08:00] VITALS: BP 106/63; PULSE 44; RESP 18; TEMP 36.6; O2SAT 96
--- NOTE | 2024-06-04 09:25 | P.HPPS_ITS ---
HPI Date of Service: 06/04/24 Chief Complaint: suicidal Sources of Information: patient interviewed, chart reviewed and crisis/core team assessment reviewed HPI Subjective Notes: Shukla Warning, Conditional Voluntary and 3 Day Past Psychiatric History: Denied PMFSH Social History: Lives with of 7 years: Nicki Rodriguez [phone]. No children. No active legal issues. [employer] Diagnostics Vital Signs (24Hr): Vital Signs - 24 hr 06/03/24 13:57 06/03/24 20:00 06/04/24 08:00 Temperature 97.5 F 97.6 F 97.8 F Pulse Rate 49 L 50 44 L Respiratory Rate 20 18 Blood Pressure 151/67 H 119/70 106/63 Pulse Oximetry 98 98 96 Oxygen Delivery Method Room Air Room Air Room Air BMI result Body Mass Index 19.8 Meds/Allergies Meds Home Medications ?Medication ?Instructions ?Recorded ?Confirmed ?Type bictegravir 50 mg-emtricitabine 1 tab PO BEDTIME 06/02/24 06/03/24 History 200 mg-tenofovir alafenam 25 mg tablet (Biktarvy) hydroxyzine pamoate 50 mg capsule 50 mg PO TID PRN Anxiety 06/02/24 06/03/24 History sertraline 50 mg tablet 50 mg PO DAILY 06/03/24 06/03/24 History trazodone 100 mg tablet 200 mg PO BEDTIME 06/03/24 06/03/24 History Allergies Allergies Allergy/AdvReac Type Severity Reaction Status Date / Time sulfamethoxazole AdvReac Hives Verified 06/02/24 01:51 EDT [From Bactrim] trimethoprim [From Bactrim] AdvReac Hives Verified 06/02/24 01:51 EDT Assessment & Plan Statement Statement: I have reviewed the history and physical and performed a pertinent examination on my patient. No changes have occurred unless specified. If the History and Physical was not performed prior to admission, the Hospitalist's service will be consulted for completing the admission ph ysical. Time Spent With Patient Time: Total time managing care of this patient today ____ minutes.
--- NOTE | 2024-06-04 09:53 | HO.PSYADMNOT ---
HPI Date of Service: 06/04/24 Chief Complaint: suicidal Sources of Information: patient interviewed, chart reviewed and crisis/core team assessment reviewed HPI Subjective Notes: Conditional Voluntary and 3 Day (06/07/24) Healthcare Proxy: No Guardianship: No Medical Problems Affecting Mental Status: No Narrative: 33 yo male, to [facility] via EMS. called 911 after an intentional OD of reported 18-20 Trazodone 100 mg. Police report indicates pt endorsed SI. Pt treated with charcoal, Mg, K , IV, Serial EKG. Admission to [facility]. Pt reports OD was intentional with the goal of coming down from cocaine however reports he took too many and had a blackout. Reports his intent was not to . Denies hx of SI, SA, no thoughts of wanting to suicide. Pt reports he has no intent to stop substances and will proceed with discharge. Past Psychiatric History: IP: Denies OP: [facility] Methadone Clinic on [facility] Trials: Sertraline, Trazodone. Reports he was prescribed these in [facility] however finds them ineffective. Declines further trials. Medical Evaluation Reviewed: Yes [facility] Narrative: Hep C has been treated HIV pt reports he has had success with Biktarvy Declines further diagnostics Social History: Lives with of 7 years: Nicki Rodriguez [phone]. No children. 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 Reports being out of incarceration since 03/29/24 Substance History: Age 13 started using substances Cocaine IV Heroin Hx I have used everything Methadone Clinic-[facility] Trauma History: Incarceration hx Diagnostics Vital Signs (24Hr): Vital Signs - 24 hr 06/03/24 13:57 06/03/24 20:00 06/04/24 08:00 Temperature 97.5 F 97.6 F 97.8 F Pulse Rate 49 L 50 44 L Respiratory Rate 20 18 Blood Pressure 151/67 H 119/70 106/63 Pulse Oximetry 98 98 96 Oxygen Delivery Method Room Air Room Air Room Air BMI result Body Mass Index 19.8 Meds/Allergies Meds Home Medications ?Medication ?Instructions ?Recorded ?Confirmed ?Type bictegravir 50 mg-emtricitabine 1 tab PO BEDTIME 06/02/24 06/03/24 History 200 mg-tenofovir alafenam 25 mg tablet (Biktarvy) hydroxyzine pamoate 50 mg capsule 50 mg PO TID PRN Anxiety 06/02/24 06/03/24 History sertraline 50 mg tablet 50 mg PO DAILY 06/03/24 06/03/24 History trazodone 100 mg tablet 200 mg PO BEDTIME 06/03/24 06/03/24 History Allergies Allergies Allergy/AdvReac Type Severity Reaction Status Date / Time sulfamethoxazole AdvReac Hives Verified 06/02/24 01:51 EDT [From Bactrim] trimethoprim [From Bactrim] AdvReac Hives Verified 06/02/24 01:51 EDT Mental Status Exam Mental Status Exam Patient Appearance: Fatigued Patient Orientation: Person, Place, Time and Situation Level of Consciousness: Sedated Patient Behavior: Talkative Mood Description: Blunted Affect Description: Blunted Patient Cognition Impaired: No Ability to Follow Directions: Good Speech Pattern: Spontaneous Speech Memory Description: Episodic Impaired Hallucinations: None Delusions: Not Present Thought Process: Goal Oriented Thought Content: positive for Goal Oriented and positive for Suicidal Ideation (denies) Judgement: Fair Assessment & Plan Assessment & Plan (1) Cocaine use disorder: Status: Acute Code(s): F14.10 - Cocaine abuse, uncomplicated (2) Overdose of trazodone: Status: Acute Code(s): T43.211A - Poisoning by selective serotonin and norepinephrine reuptake inhibitors, accidental (unintentional), initial encounter Plan Plan: Three Day Notice 06/07 Collateral Contact he has approved Addiction Consult-pt declines. Hx Methadone Clinic with [facility] he reports. Team will contact. Declines psychopharmacology changes Continue to monitor post overdose, encouarge milieu, offer services and resources, attempt alliance Patient educated on: therapeutic strategies Reason for continued inpatient stay Substantial Risk for: rapid decompensation Statement Statement: I have reviewed the history and physical and performed a pertinent examination on my patient. No changes have occurred unless specified. If the History and Physical was not performed prior to admission, the Hospitalist's service will be consulted for completing the admission physical. Time Spent With Patient Time: Total time managing care of this patient today ____ minutes.
[2024-06-04] MEDS: Nicotine 21 MG PATCH.TD24 TRANSDERMA (17:58)
--- NOTE | 2024-06-04 18:12 | PC.NURSE ---
Pt requested to sign a 3 day notice stating he did not want to be here anymore. When asked about his overdose on Trazodone he reported I called my girl cause I wasn't feeling right, my ears were ringing. Next time I overdose I am not telling anyone. When further questioned about this he stated that he took the trazodone when he was high on cocaine and thought that taking several pills of trazadone would help him sleep. He reported I love to get high and I have overdosed before and was fine. He states he did not overdose in attempt to end his life though stating I have HIV, I just wanna republican and get high! . All appropriate persons notified of 3 day notice.
[2024-06-04 20:00] VITALS: BP 119/58; PULSE 49; RESP 97; TEMP 36.4; O2SAT 97
[2024-06-04] MEDS: Bictegrav/Emtricit/Tenofov Ala TABLET 1 TAB PO (20:24)
[2024-06-04] MEDS: hydrOXYzine HCL 50 MG TABLET PO (20:26)
[2024-06-04] MEDS: traZODone HCL 100 MG TABLET 200 MG PO (20:28)
[2024-06-05] MEDS: methADONE HCl 20 MG/2 ML ORAL.CONC 170 MG PO (07:49)
[2024-06-05 08:23] VITALS: BP 98/58; PULSE 79; RESP 16; TEMP 36.9; O2SAT 97
--- NOTE | 2024-06-05 10:34 | P.PNPSI_ITS ---
Subjective Subjective Date of Service: 06/05/24 Reason For Visit: suicidal Subjective Notes: 3 Day Healthcare Proxy: No Guardianship: No Medical Problems Affecting Mental Status: No Interim History: Three day notice to 06/07. Pt is more engaged and visable on the unit today. He continues to decline medication adjustments in antidepressant and further treatment. He is allowing team to talk with his Methadone Clinic and PCP with [facility]. He denies SI/HI/AH/VH. There are no symptoms of psychosis or jon present. Medication Compliance: Intermittent Side effects from medications: No Attending Groups: No Review of Systems s/p Trazodone OD Review of Systems Review of Systems Yes all other systems are reviewed and are negative Mental Status Exam Mental Status Exam Patient Appearance: Appropriate Patient Orientation: Person, Place, Time and Situation Level of Consciousness: Alert Patient Behavior: Talkative and Good Eye Contact Mood Description: Blunted Affect Description: Blunted Patient Cognition Impaired: No Ability to Follow Directions: Good Speech Pattern: Spontaneous Speech Memory Description: Episodic Impaired Hallucinations: None Delusions: Not Present Thought Process: Goal Oriented Thought Content: positive for Goal Oriented and positive for Suicidal Ideation (denies) Judgement: Good Diagnostics Vital Signs (24Hr): Vital Signs - 24 hr 06/04/24 20:00 06/05/24 08:23 Temperature 97.6 F 98.4 F Pulse Rate 49 L 79 Respiratory Rate 97 H 16 Blood Pressure 119/58 L 98/58 L Pulse Oximetry 97 97 Oxygen Delivery Method Room Air Room Air BMI result Body Mass Index 19.8 Medications Medications Current Medications Acetaminophen (Acetaminophen 325 Mg Tablet) 650 mg PO Q6H PRN PRN Reason: Headache/Pain Mild Scale (1-3) Al Hydroxide/Mg Hydroxide (Magnesium Hydrox/Alum Hydrox 30 Ml Oral.Susp) 30 ml PO Q6H PRN PRN Reason: Heartburn/Nausea Bictegravir/Emtricitabine/Tenofovir (Bictegrav/Emtricit/Tenofov Ala Tablet) 1 tab PO BEDTIME [facility] Last Admin: 06/04/24 20:24 Dose: 1 tab Hydroxyzine HCl (Hydroxyzine Hcl 25 Mg Tablet) 25 mg PO Q6H PRN PRN Reason: Anxiety Last Admin: 06/03/24 14:30 Dose: 25 mg Hydroxyzine HCl (Hydroxyzine Hcl 50 Mg Tablet) 50 mg PO TID PRN PRN Reason: Anxiety Last Admin: 06/04/24 20:26 Dose: 50 mg Magnesium Hydroxide (Milk Of Magnesia 30 Ml Oral.Susp) 30 ml PO DAILY PRN PRN Reason: Constipation Methadone HCl (Methadone Hcl 20 Mg/2 Ml Oral.Conc) 170 mg PO DAILY [facility] Last Admin: 06/05/24 07:49 Dose: 170 mg Nicotine (Nicotine 21 Mg Patch.Td24) 21 mg TRANSDERMA DAILY PRN PRN Reason: smoking cessation Last Admin: 06/04/24 17:58 Dose: 21 mg Nicotine Polacrilex (Nicotine Polacrilex 2 Mg Gum) 4 mg BUCCAL Q2H PRN PRN Reason: Nicotine Cravings Olanzapine (Olanzapine 5 Mg Tablet) 5 mg PO TID PRN PRN Reason: agitation Sertraline HCl (Sertraline Hcl 50 Mg Tablet) 50 mg PO DAILY [facility] Last Admin: 06/05/24 08:56 Dose: Not Given Trazodone HCl (Trazodone Hcl 50 Mg Tablet) 50 mg PO BEDTIME MRX1 PRN PRN Reason: Insomnia Trazodone HCl (Trazodone Hcl 100 Mg Tablet) 200 mg PO BEDTIME [facility] Last Admin: 06/04/24 20:28 Dose: 200 mg Allergies Allergies Allergy/AdvReac Type Severity Reaction Status Date / Time sulfamethoxazole AdvReac Hives Verified 06/02/24 01:51 EDT [From Bactrim] trimethoprim [From Bactrim] AdvReac Hives Verified 06/02/24 01:51 EDT Assessment & Plan Assessment & Plan (1) Cocaine use disorder: Status: Acute Code(s): F14.10 - Cocaine abuse, uncomplicated (2) Overdose of trazodone: Status: Acute Code(s): T43.211A - Poisoning by selective serotonin and norepinephrine reuptake inhibitors, accidental (unintentional), initial encounter Plan Plan: Three Day Notice 06/07 Collateral Contact he has approved Addiction Consult-pt declines. Hx Methadone Clinic with [facility] he reports. Team will contact. Declines psychopharmacology changes Continue to monitor post overdose, encouarge milieu, offer services and resources, attempt alliance 06/05/24- Will discharge 06/07. More visable in milieu today. Continues to decline rx. Reason for continued inpatient stay Substantial Risk for: rapid decompensation Time Spent With Patient Time: Total time managing care of this patient today ____ minutes.
[2024-06-05] MEDS: Nicotine 21 MG PATCH.TD24 TRANSDERMA (12:41)
[2024-06-05 20:00] VITALS: BP 102/51; PULSE 51; RESP 16; TEMP 36.6; O2SAT 96
[2024-06-05] MEDS: traZODone HCL 100 MG TABLET 200 MG PO (20:52)
[2024-06-05] MEDS: Bictegrav/Emtricit/Tenofov Ala TABLET 1 TAB PO (20:53)
[2024-06-05] MEDS: hydrOXYzine HCL 50 MG TABLET PO (20:54)
[2024-06-06] MEDS: methADONE HCl 20 MG/2 ML ORAL.CONC 170 MG PO (07:56)
[2024-06-06 08:22] VITALS: BP 108/58; PULSE 52; TEMP 36.5; O2SAT 96
--- NOTE | 2024-06-06 15:49 | HO.PSYCHPN ---
Subjective Subjective Date of Service: 06/06/24 Reason For Visit: suicidal Subjective Notes: Conditional Voluntary and 3 Day Healthcare Proxy: No Guardianship: No Medical Problems Affecting Mental Status: No Interim History: Pt is interactive in our meeting today. We reviewed Trazodone and the dangers of OD. He agrees to an EKG prior to DC on 06/07. He continues to decline treatment and denies SI/HI/AH/VH. There are no sx of psychosis or jon. Medication Compliance: Intermittent Side effects from medications: No Attending Groups: No Review of Systems Acute medical concerns: No Review of Systems Review of Systems Yes all other systems are reviewed and are negative (denies) Mental Status Exam Mental Status Exam Patient Appearance: Appropriate Patient Orientation: Person, Place, Time and Situation Level of Consciousness: Alert Patient Behavior: Talkative and Good Eye Contact Mood Description: Blunted Affect Description: Blunted Patient Cognition Impaired: No Ability to Follow Directions: Good Speech Pattern: Spontaneous Speech Memory Description: Episodic Impaired Hallucinations: None Delusions: Not Present Thought Process: Goal Oriented Thought Content: positive for Goal Oriented and positive for Suicidal Ideation (denies) Judgement: Good Diagnostics Vital Signs (24Hr): Vital Signs - 24 hr 06/05/24 20:00 06/06/24 08:22 Temperature 97.8 F 97.7 F Pulse Rate 51 52 Respiratory Rate 16 Blood Pressure 102/51 L 108/58 L Pulse Oximetry 96 96 Oxygen Delivery Method Room Air Room Air BMI result Body Mass Index 19.8 Medications Medications Current Medications Acetaminophen (Acetaminophen 325 Mg Tablet) 650 mg PO Q6H PRN PRN Reason: Headache/Pain Mild Scale (1-3) Al Hydroxide/Mg Hydroxide (Magnesium Hydrox/Alum Hydrox 30 Ml Oral.Susp) 30 ml PO Q6H PRN PRN Reason: Heartburn/Nausea Bictegravir/Emtricitabine/Tenofovir (Bictegrav/Emtricit/Tenofov Ala Tablet) 1 tab PO BEDTIME [facility] Last Admin: 06/05/24 20:53 Dose: 1 tab Hydroxyzine HCl (Hydroxyzine Hcl 25 Mg Tablet) 25 mg PO Q6H PRN PRN Reason: Anxiety Last Admin: 06/03/24 14:30 Dose: 25 mg Hydroxyzine HCl (Hydroxyzine Hcl 50 Mg Tablet) 50 mg PO TID PRN PRN Reason: Anxiety Last Admin: 06/05/24 20:54 Dose: 50 mg Magnesium Hydroxide (Milk Of Magnesia 30 Ml Oral.Susp) 30 ml PO DAILY PRN PRN Reason: Constipation Methadone HCl (Methadone Hcl 20 Mg/2 Ml Oral.Conc) 170 mg PO DAILY [facility] Last Admin: 06/06/24 07:56 Dose: 170 mg Nicotine (Nicotine 21 Mg Patch.Td24) 21 mg TRANSDERMA DAILY PRN PRN Reason: smoking cessation Last Admin: 06/05/24 12:41 Dose: 21 mg Nicotine Polacrilex (Nicotine Polacrilex 2 Mg Gum) 4 mg BUCCAL Q2H PRN PRN Reason: Nicotine Cravings Olanzapine (Olanzapine 5 Mg Tablet) 5 mg PO TID PRN PRN Reason: agitation Sertraline HCl (Sertraline Hcl 50 Mg Tablet) 50 mg PO DAILY [facility] Last Admin: 06/06/24 08:50 Dose: Not Given Trazodone HCl (Trazodone Hcl 50 Mg Tablet) 50 mg PO BEDTIME MRX1 PRN PRN Reason: Insomnia Trazodone HCl (Trazodone Hcl 100 Mg Tablet) 200 mg PO BEDTIME [facility] Last Admin: 06/05/24 20:52 Dose: 200 mg Allergies Allergies Allergy/AdvReac Type Severity Reaction Status Date / Time sulfamethoxazole AdvReac Hives Verified 06/02/24 01:51 EDT [From Bactrim] trimethoprim [From Bactrim] AdvReac Hives Verified 06/02/24 01:51 EDT Assessment & Plan Assessment & Plan (1) Cocaine use disorder: Status: Acute Code(s): F14.10 - Cocaine abuse, uncomplicated (2) Overdose of trazodone: Status: Acute Code(s): T43.211A - Poisoning by selective serotonin and norepinephrine reuptake inhibitors, accidental (unintentional), initial encounter Plan Plan: Three Day Notice 06/07 Collateral Contact he has approved Addiction Consult-pt declines. Hx Methadone Clinic with [facility] he reports. Team will contact. Declines psychopharmacology changes Continue to monitor post overdose, encouarge milieu, offer services and resources, attempt alliance 06/05/24- Will discharge 06/07. More visable in milieu today. Continues to decline rx. 06/06/24- Discharge 06/07 Declines Tx. Reason for continued inpatient stay Substantial Risk for: stable for discharge Time Spent With Patient Time: Total time managing care of this patient today ____ minutes.
[2024-06-06 19:14] VITALS: BMI 19.8
[2024-06-06 20:00] VITALS: BP 97/53; PULSE 52; TEMP 36.9; O2SAT 96
[2024-06-06] MEDS: hydrOXYzine HCL 25 MG TABLET PO (21:11)
[2024-06-06] MEDS: traZODone HCL 100 MG TABLET 200 MG PO (21:11)
[2024-06-06] MEDS: Bictegrav/Emtricit/Tenofov Ala TABLET 1 TAB PO (21:11)
[2024-06-07] MEDS: methADONE HCl 20 MG/2 ML ORAL.CONC 170 MG PO (07:53)
[2024-06-07 08:00] VITALS: BP 103/56; PULSE 48; RESP 14; TEMP 36.4; O2SAT 98
[2024-06-07] MEDS: Nicotine Polacrilex 2 MG GUM 4 MG BUCCAL (08:39)
[2024-06-07] MEDS: Nicotine 21 MG PATCH.TD24 TRANSDERMA (08:40)
--- NOTE | 2024-06-07 16:03 | P.DS_ITS ---
DS: Providers Provider Date of Service: 06/07/24 Date of admission: 06/03/24 13:09 Date of discharge: 06/07/24 Primary care physician: Unknown Physician Admitting clinician: Citlali Scott Attending physician on admission: Jake Carrillo Attending physician on discharge: Jake Carrillo Discharging clinician: Citlali Scott DS: Diagnosis Discharge Diagnosis (1) Cocaine use disorder: Status: Acute (2) Overdose of trazodone: Status: Resolved DS: Medications Discharge Medications Home Medications: Home Medications ?Medication ?Instructions ?Recorded ?Confirmed bictegravir 50 mg-emtricitabine 1 tab PO BEDTIME 06/02/24 06/03/24 200 mg-tenofovir alafenam 25 mg tablet (Biktarvy) hydroxyzine pamoate 50 mg capsule 50 mg PO TID PRN Anxiety 06/02/24 06/03/24 sertraline 50 mg tablet 50 mg PO DAILY 06/03/24 06/03/24 trazodone 100 mg tablet 200 mg PO BEDTIME 06/03/24 06/03/24 Previous Rx's ?Medication ?Instructions ?Recorded methadone 10 mg/mL oral 170 mg (17 mL) PO DAILY #30 mL 06/03/24 concentrate (Methadose) Mental Status Exam Mental Status Exam Patient Appearance: Appropriate Patient Orientation: Person, Place, Time and Situation Level of Consciousness: Alert Patient Behavior: Talkative and Good Eye Contact Mood Description: Blunted Affect Description: Blunted Patient Cognition Impaired: No Ability to Follow Directions: Good Speech Pattern: Spontaneous Speech Memory Description: Episodic Impaired Hallucinations: None Delusions: Not Present Thought Process: Goal Oriented Thought Content: positive for Goal Oriented and positive for Suicidal Ideation (denies) Judgement: Good DS: Summary Hospital Course Hospital Course: Admission to adult psychiatry s/p overdose of 18-20 Trazodone 100 mg. Pt kuldeep galan admitted [place] [facility], given charcoal, Mg, K, IVF and ongoing cardiac monitoring from 06/02/24-06/03/24. Upon admission, pt signed a three day notice, stating, I was not attempting to , I was attempting to come down from cocaine use. Pt reports he has no intention of stopping substance use. He does not believe he has a problem and declined all treatment. He was able to receive education regarding Trazodone, half-life and the risks of overtaking this medication. Pt was monitored during his three day period without event. He declined medication changes and further care. Status at Discharge Functional status at discharge: independent ambulation Overall status at discharge: patient is back to baseline Time Spent with Patient Time attestation: Total time managing care of this patient today ____ minutes. Time spent: Less than 30 minutes Discharge Plan Discharge Anticipated Discharge Date/Time: 06/07/24 12:00 Patient Disposition: Home, Self-Care Discharge Diagnosis: Cocaine Use Disorder Trazodone overdose without suicidal intent Referrals: [facility] Infectious Disease w Dr. Fisher [Other] - 06/13/24 11:00 am (The number above is to the care management team - they helped set your appts up. I spoke with Jazzmine from their team. During this appt w Dr. Fisher ask about having them refer you to a psychiatrist and a therapist with N.) [facility] PCP w Dr Zainab Govea [Other] - 06/14/24 10:15 am (The number above is to the care management team - they helped set your appts up. I spoke with Jazzmine from their team. ) [facility] Center for Recovery [Other] - 1 Week ([facility] has a recovery support center - when you are ready to consider sobriety here is their contact information. ) Discharge Medications: Continued hydroxyzine pamoate 50 mg capsule 50 mg PO TID PRN (Reason: Anxiety) Biktarvy 50-200-25 mg tablet 1 tab PO BEDTIME methadone [Methadose] 10 mg/mL concentrate 170 mg PO DAILY Qty: 30 0RF Rx Instructions: Partial Fill upon patient request. sertraline 50 mg Tablet 50 mg PO DAILY trazodone 100 mg Tablet 200 mg PO BEDTIME Rx Instructions: take 2 tablets at bedtime for insomnia Discharge Orders: Discharge Order (Routine); Ordered 06/07/24 Ordered By: Citlali Scott Diet: Advance to usual diet Activity on Discharge: As tolerated Stand Alone Forms: Patient Portal Discharge page, Community Support Print Language: Azeri Care Plan Goals: Mood and Behavioral Stabilization Health Concerns: Mood and Behavioral Stabilization Plan of Treatment: Pt discharges on a three day notice of intent He declines treatment interventions. He will follow up with [facility] and [facility] for Methadone Assessment: Denies SI/HI/AH/VH No sx of jon or psychosis Discharge Date/Time: 06/07/24 10:36
== END 2024-06-07 10:36 | disposition home or self-care (01) | DRG 773 ==
PROVIDERS: Admitting Provider Psychiatry & Neurology Psychiatry; Visit Provider Psychiatry & Neurology Psychiatry
DX: F14.10 Cocaine abuse, uncomplicated (principal); F11.20 Opioid dependence, uncomplicated; F17.210 Nicotine dependence, cigarettes, uncomplicated; T43.211A Poisoning by selective serotonin and norepinephrine reuptake inhibitors, accidental (unintentional), initial encounter; Z71.6 Tobacco abuse counseling; Z79.899 Other long term (current) drug therapy

== ENCOUNTER → 2024-06-03 13:09 | Outpatient (BNV) | payer OTHER, SELFPAY | PROVIDERS: Admitting Provider Psychiatry & Neurology Psychiatry; Visit Provider Clinical Nurse Specialist Psychiatric/Mental Health, Adult | DX: F14.10 Cocaine abuse, uncomplicated (principal); T43.211A Poisoning by selective serotonin and norepinephrine reuptake inhibitors, accidental (unintentional), initial encounter | CPT/HCPCS: 99231; 99232 ==

== ENCOUNTER → 2024-06-03 13:09 | Outpatient (BNV) | payer OTHER, SELFPAY | PROVIDERS: Admitting Provider Psychiatry & Neurology Psychiatry; Visit Provider Psychiatry & Neurology Psychiatry | DX: F14.10 Cocaine abuse, uncomplicated (principal); T43.211A Poisoning by selective serotonin and norepinephrine reuptake inhibitors, accidental (unintentional), initial encounter | CPT/HCPCS: 99231 ==

== ENCOUNTER 2024-07-02 11:49 | Outpatient (REF) | payer OTHER, SELFPAY ==
[2024-07-02 14:13] LABS: Alanine Aminotransferase 35 U/L (0-40); Alkaline Phosphatase 76 U/L (39-117); Anion Gap 10 (12-20); Aspartate Amino Transferase 37 U/L (5-37); Bilirubin Total 0.6 mg/dL (0.0-1.0); Blood Urea Nitrogen 15 mg/dL (9-16); Calcium 9.3 mg/dL (8.4-10.2); Carbon Dioxide 26 mmol/L (22-29); Chloride 105 mmol/L (96-108); Estimated Glomerular Filt Rate > 60; Glucose Random 111 mg/dL (60-115); Potassium 3.8 mmol/L (3.3-5.1); Sodium 137 mmol/L (135-145); Total Protein 7.5 g/dL (6.5-8.0)
[2024-07-02 14:30] LABS: MANUAL DIFF FLAG NO
[2024-07-02 14:38] LABS: Basophils Percent Auto 0.8 % (0-2); Eosinophils Absolute Auto 0.1 X10*3/uL (0.0-0.4); Eosinophils Percent Auto 2.4 % (0-4); Hemoglobin 13.2 g/dl (14.0-18.0); Lymphocytes Absolute Auto 1.1 X10*3/uL (1.2-4.9); Lymphocytes Percent Auto 28.8 % (20-40); Mean Corpuscular HGB Conc 33.8 g/dl (31.0-36.0); Mean Corpuscular Hemoglobin 30.1 pg (27.0-33.0); Mean Corpuscular Volume 88.8 fL (80.0-98.0); Mean Platelet Volume 9.7 fL (9.4-12.4); Monocytes Absolute Auto 0.3 X10*3/uL (0.1-1.2); Monocytes Percent Auto 7.9 % (2-11); Neutrophils Absolute Auto 2.3 x10*3/uL (2.0-8.3); Neutrophils Percent Auto 60.1 % (45-73); Platelet Count 216 X10*3/uL (160-400); Red Blood Count 4.39 X10*6/uL (4.60-5.80); Red Cell Distribution Width 13.2 % (11.0-16.0); White Blood Count 3.8 X10*3/uL (4.8-10.8)
[2024-07-03 05:28] LABS: Hepatitis A Antibody IgG REACTIVE (Nonreactive); ~Hepatitis A Antibody IgG 4.14 S/CO (0.00-0.99)
[2024-07-03 05:29] LABS: HBc Num1 0.35 S/CO (0.00-0.79); HBsAGNum1 0.49 S/CO (0.00-0.99); Hepatitis B Core Antibody Nonreactive (Nonreactive); Hepatitis B Surface Antigen Negative (Negative); ~Hepatitis B Surface Antibody NONREACTIVE (Nonreactive)
[2024-07-04 21:08] LABS: HCV Log PCR 6.32 Log IU/mL (NOT DETECTED); HepC Viral Load 2110000 IU/mL (NOT DETECTED)
[2024-07-04 22:59] LABS: HIV RNA PCR Qn Copies NOT DETECTED copies/mL (NOT DETECTED); HIV RNA PCR Qn Log Copies NOT DETECTED (NOT DETECTED)
[2024-07-05 04:44] LABS: TS Negative Control Passed; TS Panel A 0; TS Panel B 1; TS Positive Control Passed; TSpotTB Negative (Negative)
[2024-07-05 22:33] LABS: Absolute CD3 Count 817 cells/uL (840-3060); Absolute CD4 Count 366 cells/uL (490-1740); Absolute CD8 Count 456 cells/uL (180-1170); Absolute Lymphocytes 1156 cells/uL (850-3900); Percent CD3 Cells 71 % (57-85); Percent CD4 Cells 32 % (30-61); Percent CD8 Cells 39 % (12-42)
== END 2024-07-02 11:50 | disposition home or self-care (01) ==
LOC: HO.HHCL 11:49
PROVIDERS: Visit Provider Internal Medicine
DX: B20 Human immunodeficiency virus [HIV] disease (principal); B19.20 Unspecified viral hepatitis C without hepatic coma
CPT/HCPCS: 36415; 80053; 85025; 86359; 86360; 86481; 86704; 86706; 86708; 87340; 87522; 87536

== ENCOUNTER 2024-07-28 03:27 | Emergency (ER) | payer MEDICAID, SELFPAY ==
[2024-07-28 03:37] VITALS: BP 130/60; BP 136/88; PULSE 110; PULSE 96; RESP 17; TEMP 37.3; O2SAT 96; O2SAT 98; BMI 19.1
[2024-07-28 04:03] LABS: Basophils Percent Auto 0.2 % (0-2); Hemoglobin 13.8 g/dl (14.0-18.0); Imm Gran Abs Auto 0.02 X10*3/uL (0.00-0.03); Imm Gran Pct Auto 0.3 % (0.0-0.4); Lymphocytes Absolute Auto 0.8 X10*3/uL (1.2-4.9); Lymphocytes Percent Auto 13.9 % (20-40); MANUAL DIFF FLAG NO; Mean Corpuscular HGB Conc 33.7 g/dl (31.0-36.0); Mean Corpuscular Hemoglobin 28.8 pg (27.0-33.0); Mean Corpuscular Volume 85.6 fL (80.0-98.0); Mean Platelet Volume 8.8 fL (9.4-12.4); Monocytes Absolute Auto 0.4 X10*3/uL (0.1-1.2); Monocytes Percent Auto 6.6 % (2-11); Neutrophils Absolute Auto 4.7 x10*3/uL (2.0-8.3); Platelet Count 227 X10*3/uL (160-400); Red Blood Count 4.79 X10*6/uL (4.60-5.80); Red Cell Distribution Width 13.8 % (11.0-16.0); White Blood Count 5.9 X10*3/uL (4.8-10.8)
--- NOTE | 2024-07-28 04:05 | PC.NURSE ---
this rn assumed care of pt from ems. pt calm and cooperative with plan of care med rec performed orders placed pt awaiting to be seen by ed provider pt denies SI/HI at this time pt provided with sandwich and water
[2024-07-28 04:18] LABS: Ethanol < 10 mg/dL
[2024-07-28 04:20] LABS: Alanine Aminotransferase 35 U/L (0-40); Albumin Level 4.4 g/dL (3.5-5.0); Alkaline Phosphatase 85 U/L (39-117); Anion Gap 19 (12-20); Aspartate Amino Transferase 40 U/L (5-37); Bilirubin Total 0.5 mg/dL (0.0-1.0); Blood Urea Nitrogen 28 mg/dL (9-16); Calcium 9.9 mg/dL (8.4-10.2); Carbon Dioxide 21 mmol/L (22-29); Chloride 106 mmol/L (96-108); Creatinine Clr Calc Pharmacy 76.1; Estimated Glomerular Filt Rate > 60; Glucose Random 96 mg/dL (60-115); Potassium 4.1 mmol/L (3.3-5.1); Sodium 142 mmol/L (135-145); Total Protein 8.2 g/dL (6.5-8.0)
[2024-07-28 04:23] LABS: Amphetamine Screen Urine Not Detected (Not Detect); Barbiturates, Urine Not Detected (Not Detect); Benzodiazepines Screen Urine Not Detected (Not Detect); Buprenorphine Scr Not Detected (Not Detect); Cannabinoid Screen Urine Not Detected (Not Detect); Cocaine Screen Urine POSITIVE (Not Detect); Fentanyl, urine POSITIVE (Not Detect); Methadone Screen, Urine Positive (Not Detect); Opiate Screen Urine POSITIVE (Not Detect); Oxycodone Screen Urine Not Detected (Not Detect); Phencyclidine Screen Urine Not Detected (Not Detect)
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
--- NOTE | 2024-07-28 07:18 | PC.NURSE ---
Assumed care of patient at 0645, patient appears to be sleeping, respirations are even and unlabored, no apparent distress is noted. Continue plan of care for CARE team saul
--- NOTE | 2024-07-28 10:39 | HE.PHANOTE ---
RE METHADONE VERIFICATION LAST DOSE 170 MG GIVEN 07/27 @NETO SALAS
[2024-07-28] MEDS: methADONE HCl 20 MG/2 ML ORAL.CONC 170 MG PO (11:07)
[2024-07-28 13:37] VITALS: BP 141/62; PULSE 86; RESP 14; TEMP 36.7; O2SAT 97
== END 2024-07-28 13:40 | disposition home or self-care (01) ==
PROVIDERS: Emergency Provider Emergency Medicine
DX: F29 Unspecified psychosis not due to a substance or known physiological condition (principal); F17.210 Nicotine dependence, cigarettes, uncomplicated; F19.10 Other psychoactive substance abuse, uncomplicated; Z51.81 Encounter for therapeutic drug level monitoring; Z79.899 Other long term (current) drug therapy
CPT/HCPCS: 36415; 80053; 80307; 85025; 99284; S9485

== ENCOUNTER 2024-10-02 21:34 | Emergency (ER) | payer MEDICAID, SELFPAY ==
--- NOTE | 2024-10-02 21:51 | ED_ITS ---
HPI - Psych General Stated Complaint: Hallucinations after using cocaine & weed Time Seen by Provider: 10/02/24 21:43 Source: patient and EMS Mode of arrival: EMS Limitations: other History of Present Illness ED Provider: Dr. Kallie Hanson HPI Narrative: patient comes to the emergency room via EMS. According to EMS, patient called them, patient is homeless, called 911 because the patient is having hallucinations after using cocaine and weed. When I spoke with the patient, patient states that he is not sure if he is having hallucinations. Patient admits that he uses drugs. Denies SI or HI. patient's speech is a bit disorganized Related Data Home Medications ?Medication ?Instructions ?Recorded ?Confirmed bictegravir 50 mg-emtricitabine 1 tab PO BEDTIME 06/02/24 07/28/24 200 mg-tenofovir alafenam 25 mg tablet (Biktarvy) hydroxyzine pamoate 50 mg capsule 50 mg PO TID PRN Anxiety 06/02/24 07/28/24 trazodone 100 mg tablet 200 mg PO BEDTIME 06/03/24 07/28/24 Previous Rx's ?Medication ?Instructions ?Recorded methadone 10 mg/mL oral 170 mg (17 mL) PO DAILY #30 mL 06/03/24 concentrate (Methadose) Allergies Allergy/AdvReac Type Severity Reaction Status Date / Time sulfamethoxazole AdvReac Hives Verified 07/28/24 03:39 [From Bactrim] trimethoprim [From Bactrim] AdvReac Hives Verified 07/28/24 03:39 Review of Systems Review of Systems: Constitutional : No Weight loss, No Fever, No Chills, No Night Sweats, No Fatigue, No Malaise ENT/Mouth : No Hearing loss, No Ear Pain, No Nasal Congestion, No Sinus Pain, No Hoarseness, No sore throat, No Rhinorrhea, No Swallowing Difficulty Eyes: No Eye Pain, No Swelling, No Redness, No Foreign Body, No Discharge, No Vision Changes Cardiovascular : No Chest Pain, No SOB, No Dyspnea on Exertion, No Orthopnea, No Edema, No Palpitations Respiratory : No Cough, No Sputum, No Wheezing, No Smoke Exposure, No Dyspnea Gastrointestinal : No Nausea, No Vomiting, No Diarrhea, No Constipation, No abdominal Pain, No Hematochezia, No Melena Genitourinary : no irregular bleeding, No Dysuria, No Urinary Frequency, No Hematuria, No Urinary Incontinence, No Urgency, No Flank Pain, No Urinary Flow Changes, No Hesitancy Musculoskeletal : No joint pain, No Myalgias, No Joint Swelling Skin : No Skin Lesions, No rash Neuro : No Weakness, No Numbness, No Paresthesias, No Loss of Consciousness, No Dizziness, No Headache Psych : admits to polysubstance abuse, denies SI or HI. For EMS patient complained to them of having visual hallucinations a few using cocaine and weed Heme/Lymph: No Bruising, No Bleeding,No Lymphadenopathy Endocrine : No Polyuria, No Polydipsia, No Temperature Intolerance PMFSH Past Medical History Medical History Psychosis Suicide attempt Social History Social History Household Members: Spouse Housing: Apartment Do you presently have visiting nurse or other home services: No Alcohol intake: current Alcohol intake frequency: does not drink Comment: 1:1 sitter for SI Patient Tobacco Use Status: Current everyday Tobacco user Tobacco use type: Cigarette Cigarette Packs Per Day: 1 Cigarettes Per Day: 20.0 e-Cigarette/Vaping Use: Never Used Second Hand Smoke Exposure: No Substance Use Type: Crack/Cocaine and Marijuana service: No Sexual orientation: Straight/Heterosexual Physical Exam Const: Other: Appearance: Alert. Oriented X3. No acute distress. Eyes: Pupils equal, round and reactive to light. ENT: Pharynx normal. Neck: Normal inspection. Neck supple. No lymph nodes noted. No crepitus CVS: Normal heart rate and rhythm. Pulses normal. Normal S1 and S2 Respiratory: No respiratory distress. Breath sounds normal. No Wheezing. No rales Abdomen: Soft and nontender. No rigidity. No distention. Skin: Skin warm and dry. Normal skin color. Normal skin turgor. Extremities: No lower extremity edema. No Lacerations. No Rash Neuro: Oriented X 3. No motor deficit. No sensory deficit. Moving all extremities. No slurred speech. CN 2 through 12 grossly intact Psych: calm, cooperative, seems to have a bit of disorganized speech, mumbling intermittently, avoids eye contact Course Course Course Narrative: all of patient's labs pending care team consult pending physician observation started at 22:00 Medical Decision Making Differential Diagnosis Differential Diagnoses: The differential diagnosis associated with the presentation includes ( polysubstance abuse, alcohol intoxication, psychosis) Admission/Observation Consideration of admission/observation: Escalation of care including admission/observation considered ( care team consult pending, patient's disposition pending) Critical Care Time Critical Care Time Critical Care Time: Yes Total Critical Care Time: 35 Attestation: I have personally provided critical care time. Time includes review of lab data, radiology results, discussion with consultants, and monitoring for potential decompensation. Intervention performed as documented. Discharge Plan Discharge Clinical Impression: Psychosis, Cocaine use disorder Patient Disposition: Still a Patient Prescriptions: No Action hydroxyzine pamoate 50 mg capsule 50 mg PO TID PRN (Reason: Anxiety) Biktarvy 50-200-25 mg tablet 1 tab PO BEDTIME methadone [Methadose] 10 mg/mL concentrate 170 mg PO DAILY Qty: 30 0RF Rx Instructions: Partial Fill upon patient request. trazodone 100 mg Tablet 200 mg PO BEDTIME Rx Instructions: take 2 tablets at bedtime for insomnia Print Language: Frisian
[2024-10-02 22:12] LABS: MANUAL DIFF FLAG NO
[2024-10-02 22:14] LABS: Basophils Percent Auto 0.6 % (0-2); Eosinophils Absolute Auto 0.1 X10*3/uL (0.0-0.4); Eosinophils Percent Auto 3.4 % (0-4); Hematocrit 33.7 % (42.0-52.0); Hemoglobin 11.5 g/dl (14.0-18.0); Imm Gran Abs Auto 0.01 X10*3/uL (0.00-0.03); Imm Gran Pct Auto 0.3 % (0.0-0.4); Lymphocytes Absolute Auto 1.1 X10*3/uL (1.2-4.9); Lymphocytes Percent Auto 29.9 % (20-40); Mean Corpuscular HGB Conc 34.1 g/dl (31.0-36.0); Mean Corpuscular Hemoglobin 29.9 pg (27.0-33.0); Mean Corpuscular Volume 87.5 fL (80.0-98.0); Mean Platelet Volume 9.5 fL (9.4-12.4); Monocytes Absolute Auto 0.4 X10*3/uL (0.1-1.2); Monocytes Percent Auto 10.7 % (2-11); Neutrophils Percent Auto 55.1 % (45-73); Platelet Count 221 X10*3/uL (160-400); Red Blood Count 3.85 X10*6/uL (4.60-5.80); Red Cell Distribution Width 13.4 % (11.0-16.0); White Blood Count 3.5 X10*3/uL (4.8-10.8)
[2024-10-02 22:20] VITALS: BP 117/73; BP 140/82; PULSE 120; PULSE 87; RESP 18; TEMP 37.1; O2SAT 98; BMI 24.7
[2024-10-02 22:23] VITALS: BP 117/73; PULSE 87; RESP 16; TEMP 37.3; O2SAT 96
[2024-10-02 22:24] LABS: Amphetamine Screen Urine Not Detected (Not Detect); Barbiturates, Urine Not Detected (Not Detect); Benzodiazepines Screen Urine Not Detected (Not Detect); Buprenorphine Scr Not Detected (Not Detect); Cannabinoid Screen Urine Not Detected (Not Detect); Cocaine Screen Urine POSITIVE (Not Detect); Ethanol < 10 mg/dL; Fentanyl, urine POSITIVE (Not Detect); Methadone Screen, Urine Positive (Not Detect); Opiate Screen Urine POSITIVE (Not Detect); Oxycodone Screen Urine Not Detected (Not Detect); Phencyclidine Screen Urine Not Detected (Not Detect)
[2024-10-02 22:26] LABS: Alanine Aminotransferase 76 U/L (0-40); Albumin Level 3.6 g/dL (3.5-5.0); Alkaline Phosphatase 83 U/L (39-117); Anion Gap 10 (12-20); Aspartate Amino Transferase 72 U/L (5-37); Bilirubin Direct 0.2 mg/dL (0.0-0.5); Bilirubin Total 0.3 mg/dL (0.0-1.0); Blood Urea Nitrogen 25 mg/dL (9-16); Calcium 9.2 mg/dL (8.4-10.2); Carbon Dioxide 26 mmol/L (22-29); Chloride 107 mmol/L (96-108); Creatinine Clr Calc Pharmacy 171.8; Estimated Glomerular Filt Rate > 60; Glucose Random 114 mg/dL (60-115); Sodium 139 mmol/L (135-145); Total Protein 7.4 g/dL (6.5-8.0)
--- NOTE | 2024-10-02 23:59 | PC.NURSE ---
Took over care from Justin, pt sleeping at this time.
--- NOTE | 2024-10-03 00:29 | MHC.CARE ---
The plan is for patient to be referred to the Recovery Team.
[2024-10-03 06:01] VITALS: BP 126/72; PULSE 70; RESP 16; TEMP 36.9; O2SAT 98
--- NOTE | 2024-10-03 08:44 | PC.NURSE ---
Verified pt.'s Methadone dosing: [facility]; [place], [place] [phone] Spoke with NICK Pierce Pt.'s last dose: Methadone 170mg PO on 09/29/24 @ 08:34am Methadone verification form scanned down to pharmacy
--- NOTE | 2024-10-03 09:04 | HE.PHANOTE ---
RE METHADONE Patient receives 170 mg of methadone from [facility], last dose given 09/29/24
[2024-10-03 09:53] VITALS: BP 144/91; PULSE 67; RESP 16; TEMP 36.8; O2SAT 98
--- NOTE | 2024-10-03 09:58 | MHC.RECOVRN ---
Pt presented to [facility] ED last night reporting hallucinations from THC and cocaine use. Pt contracted for safety denied thoughts to hurt self or others happy with safe place to rest. T/w met with pt in 8 after receiving consult to Addiction Medicine for substance use. Pt sitting, awake, alert, does not want to engage in conversation. Pt states I just used too much. Pt is not interested in recovery resources or support at this time. Would like to receive methadone dose and discharge. Denies questions or concerns for t/w Discussed with provider, plan to dc pt and pt can go to [facility] for methadone dose. RN aware.
[2024-10-03 10:05] VITALS: BP 144/91; PULSE 67; RESP 16; TEMP 36.8; O2SAT 98
== END 2024-10-03 10:05 | disposition home or self-care (01) ==
PROVIDERS: Emergency Provider Emergency Medicine
DX: F29 Unspecified psychosis not due to a substance or known physiological condition (principal); F14.90 Cocaine use, unspecified, uncomplicated; F11.20 Opioid dependence, uncomplicated; Z59.02 Unsheltered homelessness
CPT/HCPCS: 36415; 80048; 80076; 80307; 85025; 99284; S9485